=== PATIENT | female | born 1955 | race Caucasian/White ===

== ENCOUNTER 2018-04-29 17:00 | Emergency (ER) | payer OTHER ==
[2018-04-29 17:39] VITALS: BP 123/77
--- NOTE | 2018-04-29 18:03 | UC ---
Skin Complaint HPI - HPI Summary HPI Summary: 5 days ago patient had a "spider bite" on her left forearm. That evening patient also noticed that she had some aching in her shoulders and neck and a band of pressure around her abdomen. Currently patient complains of a little bit of neck achiness and the red area on her left arm is still itchy. There is approximately 3 cm diameter erythema area on her arm no bull's-eye. Patient is concerned that she may have Lyme but does deny that she ever saw a tick on her. Patient is also anxious that the discomfort she had in her shoulders and abdomen was atypical angina. - History of Current Complaint Chief Complaint: UCGeneralIllness Time Seen by Provider: 04/29/18 17:53 Stated Complaint: TICK BITE Hx Obtained From: Patient ?: No Onset/Duration: Gradual Onset, Lasting Days - 5, Still Present Skin Exposure Onset/Duration: Days Ago - 5 Timing: Constant Pain Intensity: 4 Pain Scale Used: 0-10 Numeric Location: Diffuse Aggravating Factor(s): Nothing Alleviating Factor(s): Nothing Associated Signs & Symptoms: Positive: Negative - Allergy/Home Medications Allergies/Adverse Reactions: Allergies Allergy/AdvReac Type Severity Reaction Status Date / Time Penicillins Allergy Unknown Verified 04/29/18 17:30 Reaction Details Home Medications: Home Medications Sertraline* [Zoloft*] 200 mg PO DAILY 04/29/18 [History Confirmed 04/29/18] traZODone TAB* [Desyrel TAB*] 50 mg PO BEDTIME 04/29/18 [History Confirmed 04/29] Review of Systems Constitutional: Chills Skin: Other - itching red area on left arm after a bug bite Eyes: Negative ENT: Negative Respiratory: Negative Cardiovascular: Negative Gastrointestinal: Negative Genitourinary: Negative Motor: Negative Neurovascular: Negative Musculoskeletal: Arthralgia - neck and shoulder pain Neurological: Negative Psychological: Negative Is Patient Immunocompromised?: No All Other Systems Reviewed And Are Negative: Yes PMH/Surg Hx/FS Hx/Imm Hx Previously Healthy: No Psychological History: Anxiety - Surgical History Surgical History: Yes Surgery Procedure, Year, and Place: Hysterectomy, achilles tendon x2, R shoulder surgery - Family History Known Family History: Positive: None - Social History Occupation: Employed Full-time Lives: With Family Alcohol Use: Occasionally Alcohol Amount: 1-2X week Substance Use Type: None Smoking Status (MU): Never Smoked Tobacco Have You Smoked in the Last Year: No Physical Exam Triage Information Reviewed: Yes Appearance: Well-Appearing, No Pain Distress, Well-Nourished Vital Signs: Initial Vital Signs Temp 98.9 F 04/29/18 17:32 Pulse 70 04/29/18 17:32 Resp 16 04/29/18 17:32 BP 123/77 04/29/18 17:32 Pulse Ox 100 04/29/18 17:32 Vital Signs Reviewed: Yes Eye Exam: Normal Eyes: Positive: Conjunctiva Clear ENT Exam: Normal ENT: Positive: Normal ENT inspection, Hearing grossly normal, Pharynx normal, TMs normal, Uvula midline. Negative: Nasal congestion, Trismus, Muffled voice, Hoarse voice, Dental tenderness, Sinus tenderness Dental Exam: Normal Neck exam: Normal Neck: Positive: Supple, No Lymphadenopathy, Other: - posterior tenderness. Negative: Nuchal Rigidity, Enlarged Nodes @ Respiratory Exam: Normal Respiratory: Positive: Chest non-tender, Lungs clear, Normal breath sounds, No respiratory distress, No accessory muscle use Cardiovascular Exam: Normal Cardiovascular: Positive: RRR, No Murmur, Pulses Normal, Brisk Capillary Refill Abdominal Exam: Normal Abdomen Description: Positive: No Organomegaly, Soft, Other: - ruq minimal tenderness. Negative: CVA Tenderness (R), CVA Tenderness (L), Distended, Guarding, McBurney's Point Tenderness Bowel Sounds: Positive: Present Musculoskeletal Exam: Normal Musculoskeletal: Positive: Strength Intact, ROM Intact, No Edema Neurological Exam: Normal Neurological: Positive: Alert, Muscle Tone Normal Psychological Exam: Normal Skin Exam: Other Skin: Positive: Other - 3 cm erythema left forearm after insect bite Diagnostics - EKG Cardiac Rate: NL Cardiac Rhythm: Sinus: Normal Ectopy: None ST Segment: Normal Course/Dx - Course Course Of Treatment: will draw labs and patient will follow at the care clinic tomorrow.If symptoms return of abdomen pain patient advised to go to ED for evaluation - Diagnoses Provider Diagnoses: insect bite, abdomen pain, Discharge - Sign-Out/Discharge Documenting (check all that apply): Discharge/Admit/Transfer - Discharge Plan Condition: Stable Disposition: HOME Patient Education Materials: Hydrocortisone (On the skin), Insect Bite or Sting (ED) Referrals: [facility] [Outside] - 1 Week [facility] [Outside] - 1 Week - Billing Disposition and Condition Condition: STABLE Disposition: Home
[2018-04-30 11:19] LABS: ABS Basophils 0 10^3/ul (0-0.2); ABS Eosinophils 0.1 10^3/ul (0-0.6); ABS Lymphocytes 0.8 10^3/ul (1.0-4.8); ABS Monocytes 0.8 10^3/ul (0-0.8); ABS Neutrophils 4.8 10^3/ul (1.5-7.7); ABS Nucleated RBC 0 10^3/ul; Eosinophil % 1.6 % (0-6); Hematocrit 37 % (35-47); Hemoglobin 12.5 g/dl (12.0-16.0); Lymphocyte % 12.7 % (25-47); Mean Corpuscular HGB Conc 34 g/dl (31-36); Mean Corpuscular Hemoglobin 31 pg (27-31); Mean Corpuscular Volume 90 fL (80-97); Mean Platelet Volume 9.5 um3 (7.4-10.4); Nucleated Red Blood Cells % 0; Platelet Count 174 10^3/ul (150-450); Red Blood Count 4.07 10^6/ul (4.0-5.4); Red Cell Distribution Width 13 % (10.5-15); White Blood Count 6.6 10^3/ul (3.5-10.8)
[2018-04-30 11:32] LABS: EGFR Non-African American 86.8 (>60)
== END 2018-04-29 18:50 | disposition home or self-care (01) ==
LOC: UCEAST 17:00
DX: T63.301A Toxic effect of unspecified spider venom, accidental (unintentional), initial encounter (principal); L29.8 Other pruritus; M25.512 Pain in left shoulder; M25.511 Pain in right shoulder; M54.2 Cervicalgia; Y92.9 Unspecified place or not applicable; F41.9 Anxiety disorder, unspecified; Z88.0 Allergy status to penicillin
CPT/HCPCS: 36415; 80053; 85025; 86618; 93005; 99211; G0463

== ENCOUNTER 2018-04-30 17:56 | Emergency (ER) | payer OTHER ==
[2018-04-30] MEDS ORDERED: Aspirin 81 mg CHEW TAB* 81 MG TAB.CHEW PO ONE (18:06)
[2018-04-30 18:24] LABS: ABS Basophils 0.1 10^3/ul (0-0.2); ABS Eosinophils 0.2 10^3/ul (0-0.6); ABS Lymphocytes 1.1 10^3/ul (1.0-4.8); ABS Monocytes 0.8 10^3/ul (0-0.8); ABS Neutrophils 5.7 10^3/ul (1.5-7.7); ABS Nucleated RBC 0 10^3/ul; Eosinophil % 2.1 % (0-6); Hematocrit 36 % (35-47); Hemoglobin 12.4 g/dl (12.0-16.0); Lymphocyte % 13.6 % (25-47); Mean Corpuscular HGB Conc 34 g/dl (31-36); Mean Corpuscular Hemoglobin 30 pg (27-31); Mean Corpuscular Volume 89 fL (80-97); Nucleated Red Blood Cells % 0; Platelet Count 221 10^3/ul (150-450); Red Blood Count 4.11 10^6/ul (4.0-5.4); Red Cell Distribution Width 13 % (10.5-15); White Blood Count 7.8 10^3/ul (3.5-10.8)
[2018-04-30 18:44] LABS: EGFR Non-African American 81.3 (>60)
--- NOTE | 2018-04-30 19:03 | RAD ---
Indication: Chest pain. Single frontal view of the chest performed at 1824 hours was reviewed. No prior study. No mediastinal shift is noted. Heart is of normal size and configuration. Lung pelaez appear clear. IMPRESSION: NO ACTIVE CARDIOPULMONARY DISEASE IS NOTED.
--- NOTE | 2018-04-30 19:47 | RAD ---
Indication: Right upper quadrant pain. Real-time sonography of the right upper quadrant was performed. Liver is normal in size. No focal lesions or intrahepatic duct dilatation is noted. The gallbladder is partially contracted. No gallstones are identified. The common duct measures up to 6 mm. The right kidney measures 10.1 x 3.7 x 4.6 cm. No hydronephrosis. The pancreas demonstrates no mass or pancreatic duct dilatation. Aorta and inferior vena cava are unremarkable. IMPRESSION: Partially contracted gallbladder with no evidence of cholelithiasis.
[2018-04-30] MEDS ORDERED: Potassium Chlor TAB* 20 MEQ TAB.ER PO ONE (20:19)
[2018-04-30 22:00] VITALS: BP 140/77
--- NOTE | 2018-05-01 20:48 | ED ---
Remington Vásquez Tiffany, scribed for Aime Lee MD on 04/30/18 at 1827 . HPI Chest Pain - HPI Summary HPI Summary: 62 year old F presenting to [facility] complains of chest pain since one week ago, worse since today. States that the pain radiates to back and right shoulder. The pain comes and goes, usually lasting 30-60 min. The patient rates the pain 4 /10 in severity. Symptoms aggravated by nothing. Symptoms alleviated by nothing. Patient reports chest tightness, neck pain, neck stiffness, diaphoresis , fatigue, abdominal pain. Denies nausea, vomiting. Patient was seen at Urgent Care yesterday for possible Lyme Disease and gallbladder issue. - History of Current Complaint Chief Complaint: EDChestPainROMI Time Seen by Provider: 04/30/18 18:06 Hx Obtained From: Patient Onset/Duration: Started Weeks Ago - 1, Still Present, Worse Since - yesterday Timing: Lasting Minutes - 30-60 min Current Severity: Mild Pain Intensity: 4 Pain Scale Used: 0-10 Numeric Chest Pain Radiates: Yes Chest Pain Radiates To:: Back, Shoulder - right Aggravating Factor(s): Nothing Alleviating Factor(s): Nothing Associated Signs and Symptoms: Positive: Other: - Allergy/Home Medications Allergies/Adverse Reactions: Allergies Allergy/AdvReac Type Severity Reaction Status Date / Time Penicillins Allergy Unknown Verified 04/30/18 18:02 Reaction Details PMH/Surg Hx/FS Hx/Imm Hx Previously Healthy: No Endocrine/Hematology History: Denies: Hx Diabetes, Hx Thyroid Disease Cardiovascular History: Denies: Hx Hypertension Respiratory History: Denies: Hx Asthma, Hx Chronic Obstructive Pulmonary Disease (COPD) GI History: Reports: Hx Ulcer - bleeding duodenal - Surgical History Surgery Procedure, Year, and Place: Hysterectomy, achilles tendon x2, R shoulder surgery Infectious Disease History: No Infectious Disease History: Denies: Hx Clostridium Difficile, Hx Hepatitis, Hx Human Immunodeficiency Virus (HIV), Hx of Known/Suspected MRSA, Hx Shingles, Hx Tuberculosis, Hx Known/ Suspected VRE, Hx Known/Suspected VRSA, History Other Infectious Disease, Traveled Outside the [place] in Last 30 Days - Family History Known Family History: Positive: Other - Reviewed and non-contributory - Social History Alcohol Use: Occasionally Alcohol Amount: 1-2X week Hx Substance Use: No Substance Use Type: Reports: None Hx Tobacco Use: No Smoking Status (MU): Never Smoked Tobacco Have You Smoked in the Last Year: No Review of Systems Positive: Fatigue, Skin Diaphoresis Positive: Chest Pain - radiates to back and right shoulder, comes and goes usually lasting 30-60 min, Other - Chest tightness Positive: Abdominal Pain. Negative: Vomiting, Nausea Positive: Other - Neck pain, neck stiffness All Other Systems Reviewed And Are Negative: Yes Physical Exam - Summary Physical Exam Summary: VITAL SIGNS: Reviewed. GENERAL: Patient is a well-developed and nourished (MALE OR FEMALE) who is lying comfortable in the stretcher. Patient is not in any acute respiratory distress. HEAD AND FACE: No signs of trauma. No ecchymosis, hematomas or skull depressions. No sinus tenderness. EYES: PERRLA, EOMI x 2, No injected conjunctiva, no nystagmus. EARS: Hearing grossly intact. Ear canals and tympanic membranes are within normal limits. MOUTH: Oropharynx within normal limits. NECK: Supple, trachea is midline, no adenopathy, no JVD, no carotid bruit, no c- spine tenderness, neck with full ROM. CHEST: Symmetric, no tenderness at palpation LUNGS: Clear to auscultation bilaterally. No wheezing or crackles. CVS: Regular rate and rhythm, S1 and S2 present, no murmurs or gallops appreciated. ABDOMEN: RUQ tenderness EXTREMITIES: FROM in all major joints, no edema, no cyanosis or clubbing. NEURO: Alert and oriented x 3. No acute neurological deficits. Speech is normal and follows commands. SKIN: Dry and warm Triage Information Reviewed: Yes Vital Signs On Initial Exam: Initial Vitals Temp Pulse Resp BP Pulse Ox 99 F 73 18 152/76 100 04/30/18 17:57 04/30/18 17:57 04/30/18 17:57 04/30/18 17:57 04/30/18 17:57 Vital Signs Reviewed: Yes Diagnostics - Vital Signs Vital Signs Temp Pulse Resp BP Pulse Ox 04/30/18 17:57 99 F 73 18 152/76 100 - Laboratory Lab Results: Lab Results 04/30/18 04/30/18 04/30/18 Range/Units 18:15 18:15 18:15 WBC 7.8 (3.5-10.8) 10^3/ul RBC 4.11 (4.0-5.4) 10^6/ul Hgb 12.4 (12.0-16.0) g/dl Hct 36 (35-47) % MCV 89 (80-97) fL MCH 30 (27-31) pg MCHC 34 (31-36) g/dl RDW 13 (10.5-15) % Plt Count 221 (150-450) 10^3/ul MPV 8.0 (7.4-10.4) um3 Neut % (Auto) 73.3 (38-83) % Lymph % (Auto) 13.6 L (25-47) % [place] % (Auto) 10.3 H (0-7) % Eos % (Auto) 2.1 (0-6) % Baso % (Auto) 0.7 (0-2) % Absolute Neuts (auto) 5.7 (1.5-7.7) 10^3/ul Absolute Lymphs (auto) 1.1 (1.0-4.8) 10^3/ul Absolute Monos (auto) 0.8 (0-0.8) 10^3/ul Absolute Eos (auto) 0.2 (0-0.6) 10^3/ul Absolute Basos (auto) 0.1 (0-0.2) 10^3/ul Absolute Nucleated RBC 0 10^3/ul Nucleated RBC % 0 Sodium 138 L (139-145) mmol/L Potassium 3.4 L (3.5-5.0) mmol/L Chloride 103 (101-111) mmol/L Carbon Dioxide 26 (22-32) mmol/L Anion Gap 9 (2-11) mmol/L BUN 10 (6-24) mg/dL Creatinine 0.73 (0.51-0.95) mg/dL Est GFR ( Amer) 104.6 (>60) Est GFR (Non-Af Amer) 81.3 (>60) BUN/Creatinine Ratio 13.7 (8-20) Glucose 89 (70-100) mg/dL Calcium 8.7 (8.6-10.3) mg/dL Magnesium 2.4 (1.9-2.7) mg/dL Total Bilirubin 0.40 (0.2-1.0) mg/dL AST 20 (13-39) U/L ALT 18 (7-52) U/L Alkaline Phosphatase 103 (34-104) U/L Total Creatine Kinase 129 (10-223) U/L CK-MB (CK-2) 4.0 (0.6-6.3) ng/mL Troponin I 0.01 (<0.04) ng/mL B-Natriuretic Peptide 40 ( - 100) pg/mL Total Protein 7.0 (6.4-8.9) g/dL Albumin 4.0 (3.2-5.2) g/dL Globulin 3.0 (2-4) g/dL Albumin/Globulin Ratio 1.3 (1-3) TSH 4.78 (0.34-5.60) mcIU/mL Result Diagrams: 04/30/18 18:15 04/30/18 18:15 Lab Statement: Any lab studies that have been ordered have been reviewed, and results considered in the medical decision making process. - Radiology CXR Radiology Interpretation Completed By: Radiologist - NO ACTIVE CARDIOPULMONARY DISEASE IS NOTED. ED physician has reviewed this report. - EKG 17:53 Cardiac Rate: NL - 77 BPM EKG Rhythm: Sinus Rhythm EKG Interpretation: No ST elevations. - Additional Comments Diagnostic Additional Comments: Appendix US, per radiologist, shows Partially contracted gallbladder with no evidence of cholelithiasis. ED physician has reviewed this report. Re-Evaluation - Re-Evaluation First Eval Re-Evaluation Time: 21:38 Comment: patient is agreeable to discharge Chest Pain Course/Dx - Course Assessment/Plan: Blood tests results without any significant abnormality except for questionable of 3.4 for which the patient was given potassium chloride. Chest x-ray impression: No active cardiopulmonary disease. EKG normal symptoms return without ST elevations. History of the left IMPRESSION: PARTIALLY CONTRACTED GALLBLADDER WITH NO EVIDENCE OF CHOLELITHIASIS. In the ED course and the patient has remained asymptomatic. The patient doesnt have any pain, no chest pain, no nausea vomiting. The patient was given aspirin and IV fluids. Second troponin is also 0.01. Therefore this point I do not oriented but a coronary artery disease. The patient is not tachycardic or hypoxic therefore have low suspicion for a PE. At this time will be discharged the patient home with follow-up with PCP. I discussed all the findings and test results with the patient. Patient was instructed to return to the emergency room immediately if any of the symptoms return or worsens. Plan of care was discussed with the patient and understands and agrees. All questions were answered at patient satisfaction. There were no further complaints or concerns. Lung exam before discharge: CTA B/L. Good air exchange. No wheezing or crackles heard. CVS: S1 and S2 present. No murmurs appreciated. Patient is alert and oriented x 3. Patient is hemodynamically stable. Patient will be discharged home with follow up PCP in the next 2-3 days - Chest Pain Differential Diagnosis/HQI/PQRI: Acute UT, ACS, Angina, CHF, Chest Wall, GI Disease, Lower Respiratory Infection - Diagnoses Provider Diagnoses: Atypical chest pain Discharge - Sign-Out/Discharge Documenting (check all that apply): Discharge/Admit/Transfer - Discharge Plan Condition: Stable Disposition: HOME Patient Education Materials: Chest Pain (ED) Referrals: [facility] [place] [facility] [Outside] - 3 Days No Primary Care Phys,NOPCP [Primary Care Provider] - Additional Instructions: FOLLOW UP WITH PRIMARY CARE PROVIDER IN 2-3 DAYS. RETURN TO THE EMERGENCY DEPARTMENT FOR ANY NEW OR WORSENING SYMPTOMS. The documentation as recorded by the Remington dorantes Tiffany accurately reflects the service I personally performed and the decisions made by , Aime Lee MD.
== END 2018-04-30 21:50 | disposition home or self-care (01) ==
LOC: ED 17:56
DX: R07.89 Other chest pain (principal); K82.0 Obstruction of gallbladder; Z88.0 Allergy status to penicillin
CPT/HCPCS: 36415; 71045; 76705; 80053; 82550; 82553; 83735; 83880; 84443; 84484; 85025; 93005; 99283; A9270-GY